=== PATIENT | female | born 2000 | race Caucasian/White ===

== ENCOUNTER → 2025-06-10 | Outpatient (CLI) | payer MEDICAID, SELFPAY ==
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
[2025-06-10 22:06] LABS: AST(SGOT) 18 U/L (<=31); Alanine Aminotransfer ALT/SGPT 18 U/L (<=34); Albumin, Serum 4.3 g/dL (3.5-5.0); Alkaline Phosphatase 50 U/L (35-104); Anion Gap 11 (5-15); BUN 6 mg/dL (4-19); BUN/Creat Ratio 11.1 RATIO (10-20); Calcium,Total 9.1 mg/dL (7.6-11.0); Carbon Dioxide 23.0 mmol/L (21.0-32.0); Chloride 102 mmol/L (98-108); Globulin 2.5 g/dL (2.2-4.2); Glucose 76 mg/dL (70-99); Potassium 3.9 mmol/L (3.3-5.1); Vitamin D,25 Hydroxy 14.2 ng/mL (30-100)
[2025-06-10 22:51] LABS: Hematocrit 41.2 % (37-47); Hemoglobin 13.0 g/dL (12.0-15.0); Immature Granulocytes Count 0.020 X10^3/uL (0.0-0.0); Mean Corp Hgb Conc 31.6 g/dL (32-36); Mean Corpuscular Volume 91.2 fL (81-99); Mean Platelet Vol. 9.6 fl (6.2-12.0); NRBC Flagged by Analyzer 0 % (0-5); Platelet Count 362 K/mm3 (150-450); RBC Distribution Width CV 13.0 % (11.6-14.6); RBC Distribution Width SD 43.5 fl (35.1-43.9); Red Blood Count 4.52 M/mm3 (4.2-5.4); White Blood Count 7.8 K/mm3 (4.4-11.0)
[2025-06-10 23:03] LABS: Internal QC Validated? YES +Cl - CLEAR BKGD; Record Kit Lot#, Serum Preg. 980607
[2025-06-10 23:13] LABS: Pregnancy, Serum, hCG Quali. POSITIVE > 10 Negative
[2025-06-11 00:01] LABS: hCG Titer Quant., Serum 2022 mIU/mL (<9 non-preg)
== END | disposition home or self-care (01) ==
LOC: LABSPEC 16:01 → MTLAB 18:19
PROVIDERS: PCP Internal Medicine; Referring Provider Internal Medicine; Visit Provider Internal Medicine
DX: Z32.01 Encounter for pregnancy test, result positive (principal); F32.A Depression, unspecified; F41.9 Anxiety disorder, unspecified; N92.6 Irregular menstruation, unspecified
CPT/HCPCS: 36415; 80053; 82306; 84443; 84702; 84703; 85025